=== PATIENT | male | born 1985 | race Caucasian/White ===

== ENCOUNTER 2017-09-11 07:06 | Day surgery (SDC) | payer OTHER ==
[~2017-09-11] VITALS: Ht 172.7 cm; Wt 92.0 kg
[~2017-09-11 07:06] MED LIST: ASPI-691 PO; EQUATE ALLERGY PO; FLUT9.9S NAS
[2017-09-11 08:10] VITALS: BP 156/104
[2017-09-11] MEDS ORDERED: LACTATED RINGERS 1,000 ML IV SCH (08:25)
[2017-09-11] MEDS ORDERED: EPINEPHRINE 1 MG/ML, 1ML ONE (08:31)
[2017-09-11] MEDS ORDERED: BUPIVACAINE/PF 0.5% ONE (08:31)
[2017-09-11] MEDS ORDERED: FENTANYL PF 250 MCG/5ML ONE (08:46)
[2017-09-11] MEDS ORDERED: MIDAZOLAM 1 MG/ML, 2ML ONE (08:46)
[2017-09-11] MEDS ORDERED: CEFAZOLIN 1,000 MG ONE (08:58)
[2017-09-11] MEDS ORDERED: DEXAMETHASONE 4 MG/ML, 1ML ONE (08:58)
[2017-09-11] MEDS ORDERED: PROPOFOL 10 MG/ML, 20ML ONE (08:58)
[2017-09-11] MEDS ORDERED: ONDANSETRON 2MG/ML, 2ML ONE (08:58)
[2017-09-11] MEDS ORDERED: LIDOCAINE-MPF 2% ,5ML ONE (08:58)
[2017-09-11] MEDS ORDERED: MEPERIDINE/PF 50 MG/ML ONE (09:40)
[2017-09-11] MEDS ORDERED: HYDROmorphone 1 MG/ML, 1ML IV PRN (10:00)
[2017-09-11] MEDS ORDERED: hydrALAzine 20 MG/ML, 1ML IV PRN (10:00)
[2017-09-11] MEDS ORDERED: FENTANYL PF 100 MCG/2ML IV PRN (10:00)
[2017-09-11] MEDS ORDERED: LABETALOL 5MG/ML, 20ML IV PRN (10:00)
[2017-09-11] MEDS ORDERED: MORPHINE SULFATE 4 MG/ML, 1ML IVPush PRN (10:00)
[2017-09-11] MEDS ORDERED: MEPERIDINE/PF 25MG/0.5ML IVPush PRN (10:00)
[2017-09-11] MEDS ORDERED: PROMETHAZINE 25 MG/ML, 1ML IV PRN (10:00)
[2017-09-11] MEDS ORDERED: ALBUTEROL SULFATE 2.5 MG/3 ML NPPB PRN (10:00)
[2017-09-11] MEDS ORDERED: LORazepam 2 MG/ML, 1ML IVPush PRN (10:00)
[2017-09-11] MEDS ORDERED: KETOROLAC 30 MG/1 ML IV PRN (10:00)
[2017-09-11] MEDS ORDERED: OXYcodone 5 MG/5 ML ORAL.SOL UDC PO PRN (10:00)
[2017-09-11] MEDS ORDERED: ACETAMINOPHEN 325 MG TABLET PO PRN (10:00)
[2017-09-11] MEDS ORDERED: ACETAMINOPHEN 650 MG/20.3 ML UDC ONE (10:05)
[2017-09-11] MEDS ORDERED: OXYcodone 5 MG/5 ML ORAL.SOL UDC ONE (10:05)
== END 2017-09-11 13:00 | disposition home or self-care (01) ==
LOC: OUT 07:06
PROVIDERS: ATTEND Surgery
DX: K42.9 Umbilical hernia without obstruction or gangrene (principal); Z98.890 Other specified postprocedural states
CPT/HCPCS: 49585; J0171; J0690; J1100; J2175; J2250; J2405; J2704; J3010; J3490; J7120